=== PATIENT | female | born 2000 | race Caucasian/White ===

== ENCOUNTER 2021-12-06 13:27 | Observation (INO) | payer BC, SELFPAY ==
--- NOTE | ~2021-12-06 | US_ITS ---
EXAMINATION: US PELVIS CLINICAL INFORMATION: Pain. IUD. Verify placement. COMPARISON: None TECHNIQUE: Ultrasound of the pelvis is performed using both transabdominal and transvaginal transducers along with Doppler. Transvaginal imaging is performed due to inadequate visualization transabdominally. FINDINGS: Uterus: The uterus is anteverted, anteflexed and measures 7.1 cm in length, 3.5 cm in AP and 4.6 cm in transverse dimension. The double wall endometrial thickness is 0.3 cm with an IUD in correct position within the endometrial canal. The uterus is smooth in contour and has normal myometrial echogenicity. No visible fibroid. Adnexa: Both ovaries are visualized. There is normal color flow to the adnexa. There is no ovarian torsion. There is no pelvic ascites or fluid collection. Right ovary measures 3.9 x 2.6 x 2.4 CM and volume 12.7 mL. Left ovary measures 4.9 x 3.5 x 4.5 and volume 40.4 mL. There is a complex mass in left ovary measuring 3.9 x 3.3 x 2.5 cm. Findings are suspicious of complex cystic and solid mass or an There is a small to moderate amount of free fluid in the cul-de-sac. US/US pelvic and transvaginal IMPRESSION: Ovarian ectopic. IUD within the uterine cavity in correct position. Endometrium is normal appearing. Complex cystic and solid mass left ovary. There is flow visualized within this complex mass. Question hemorrhagic cyst versus an ectopic. However ectopic would be considered less likely given history of IUD in place. Correlate with HCG if patient is . Results were called by wood technologist to the referring physician directly.
[2021-12-06 13:51] VITALS: BP 106/85; BP 127/83; PULSE 117; PULSE 129; RESP 18; TEMP 37.7; O2SAT 100; O2SAT 99; BMI 32.5
--- NOTE | 2021-12-06 13:54 | ED.ABDPAIN ---
HPI - Abdominal Pain General Chief Complaint: Chest Pain Stated Complaint: CP FROM [facility] PER EMS Time Seen by Provider: 12/06/21 13:38 Source: patient Mode of arrival: EMS History of Present Illness HPI narrative: Patient is a 21-year-old female with a past medical history of SVT with ablation in 2019 was presenting with lower abdominal plain, upper chest pain and vaginal bleeding times 6 hours. Patient states she has an IUD and she thinks her last menstrual period was about a month ago. She states she is sexually active with 1 male partner but has not had intercourse since Ce. She denies any abnormal discharge, fevers, nausea vomiting or diarrhea. She states her chest pain is towards her clavicles and it is on both sides. She also has suprapubic pain and pain when trying to go to the bathroom both a bowel movement and urination, she does admit to chronic constipation. States she was drinking alcohol last night and had 6 pink jing's ( a vodka drink) but was aware of her situation and didn't experience any trauma to her vaginal area. MD elicited complaint: abdominal pain Related Data Allergies Allergy/AdvReac Type Severity Reaction Status Date / Time No Known Allergies Allergy Verified 12/06/21 13:56 Review of Systems Review of Systems Yes all other systems are reviewed and are negative Physical Exam Vital Signs: Vital Signs: Last Vital Signs Temp 99.3 F 12/06/21 14:52 Pulse 91 12/06/21 14:52 Resp 18 12/06/21 14:52 BP 128/61 12/06/21 14:52 Pulse Ox 100 12/06/21 14:52 BMI result Body Mass Index 32.5 Const: General: cooperative, healthy appearing, well developed and in distress (2/2 pain) mild Nutritional Appearance: average body habitus Orientation/consciousness: patient oriented x3 Limitations: no limitations HENMT: Head: Yes normal to inspection Eyes: General: appearance normal, both eyes and all related structures Neck: Neck: Yes normal visual inspection and Yes full ROM Chest: Chest palpation & inspection: normal inspection of the chest, normal palpation of entire chest wall and no localized rib tenderness Resp: Effort & Inspection: normal respiratory effort and able to speak in complete sentences Auscultation: clear to auscultation bilaterally Cardio: Rate: tachycardic Rhythm: regular rhythm Heart sounds: normal S1 and S2 GI: Inspection: Yes normal to inspection Palpation (GI): Soft to palpation and Tenderness to palpation present (GI) suprapubicly : Other: Blood on groin area of pants Vag exam done with tech in room External Female Exam: normal external appearance, normal appearance of the urethra, No erythema, No externally tender, No external swelling, No lesion, No laceration and No External ecchymosis (female) Speculum Exam - Vagina: normal appearance of the vagina, abnormal vaginal discharge bloody, not erythematous, no swelling and other (Unable to visualize IUD string, patient had difficulty tolerating the exam) Skin: General skin exam: no rashes or lesions noted Neuro: General: patient oriented x3 Extrem: General: Yes normal to inspection Course Course Course Narrative: Patient is a 21-year-old female with a past medical history of SVT with ablation in 2019 was presenting with lower abdominal plain, upper chest pain and vaginal bleeding times 6 hours. Vital signs are stable except patient is slightly tachycardic at 117 beats per minute, likely secondary to dehydration. Physical exam remarkable for a suprapubic TTP and blood on groin area of pants. Will get EKG, CBC, comprehensive metabolic panel, UA, test, pelvic ultrasound and give 1 L of LR, will do vaginal exam. Patient unable to urinate, will straight cath. Reevaluation(s) Reevaluation #1: Vaginal exam unremarkable, unable to visualize IUD string as pt unable to tolerate exam, patient still has abdominal pain, ultrasound pending, UA negative for infection. Patient states she is feeling constipated and typically takes Colace and a gentle laxative, will give both now. Patient's vital signs are stable, heart rate is down to [address]/NG. Preg negative. Time: 15:13 Reevaluation #2: sign out to Negar Weiss NP Time: 15:55 MDM - Abdominal Pain Lab Data Result diagrams: 12/06/21 14:24 12/06/21 14:24 Labs: Lab Results 12/06/21 12/06/21 12/06/21 Range/Units 14:24 14:24 14:52 WBC 10.0 (4.8-10.8) X10*3/uL RBC 3.94 L (4.20-5.50) X10*6/uL Hgb 11.4 L (12.0-16.0) g/dl Hct 33.7 L (37.0-47.0) % MCV 85.5 (80.0-98.0) fL MCH 28.9 (27.0-33.0) pg MCHC 33.8 (31.0-35.0) g/dl RDW 12.8 (11.0-16.0) % Plt Count 241 (160-400) X10*3/uL MPV 9.6 (9.4-12.3) fL Absolute Nucleated RBC 0.000 (0.0-0.012) X10*3/uL Nucleated RBC % (auto) 0.0 (0.0-0.2) /100WBC Sodium 140 (135-145) mmol/L Potassium 4.1 (3.3-5.1) mmol/L Chloride 107 (96-108) mmol/L Carbon Dioxide 26 (22-29) mmol/L Anion Gap 11 L (12-20) BUN 9 (9-16) mg/dL Creatinine 0.79 (0.5-1.4) mg/dL Estim Creat Clear Calc 120.6 Estimated GFR > 60 Random Glucose 105 (60-115) mg/dL Calcium 8.9 (8.4-10.2) mg/dL Total Bilirubin 0.5 (0.0-1.0) mg/dL AST 12 (5-31) U/L ALT 8 (0-31) U/L Alkaline Phosphatase 71 (39-117) U/L Total Protein 6.7 (6.5-8.0) g/dL Albumin 4.2 (3.5-5.0) g/dL Urine Color YELLOW Urine Appearance CLEAR Urine pH 7.5 (5.0-8.0) Ur Specific [place] 1.010 (1.005-1.025) Urine Protein NEG (NEG-TRACE) MG/DL Urine Glucose (UA) NEG (NEG) MG/DL Urine Ketones NEG (NEG) MG/DL Urine Blood NEG (NEG) Urine Nitrite NEG (NEG) Ur Leukocyte Esterase NEG (NEG) Urine Test (NEGATIVE) 12/06/21 Range/Units 14:52 WBC (4.8-10.8) X10*3/uL RBC (4.20-5.50) X10*6/uL Hgb (12.0-16.0) g/dl Hct (37.0-47.0) % MCV (80.0-98.0) fL MCH (27.0-33.0) pg MCHC (31.0-35.0) g/dl RDW (11.0-16.0) % Plt Count (160-400) X10*3/uL MPV (9.4-12.3) fL Absolute Nucleated RBC (0.0-0.012) X10*3/uL Nucleated RBC % (auto) (0.0-0.2) /100WBC Sodium (135-145) mmol/L Potassium (3.3-5.1) mmol/L Chloride (96-108) mmol/L Carbon Dioxide (22-29) mmol/L Anion Gap (12-20) BUN (9-16) mg/dL Creatinine (0.5-1.4) mg/dL Estim Creat Clear Calc Estimated GFR Random Glucose (60-115) mg/dL Calcium (8.4-10.2) mg/dL Total Bilirubin (0.0-1.0) mg/dL AST (5-31) U/L ALT (0-31) U/L Alkaline Phosphatase (39-117) U/L Total Protein (6.5-8.0) g/dL Albumin (3.5-5.0) g/dL Urine Color Urine Appearance Urine pH (5.0-8.0) Ur Specific [place] (1.005-1.025) Urine Protein (NEG-TRACE) MG/DL Urine Glucose (UA) (NEG) MG/DL Urine Ketones (NEG) MG/DL Urine Blood (NEG) Urine Nitrite (NEG) Ur Leukocyte Esterase (NEG) Urine Test NEGATIVE (NEGATIVE) ECG Data Attestation: I personally reviewed and interpreted this ECG as follows: Interpretation: Sinus tach 113 BPM, no ST or T-wave elevation/depression, confirmed with Dr Sahni Discharge Plan Discharge Clinical Impression: Abdominal pain, suprapubic, Atypical chest pain Patient Disposition: Home, Self-Care [facility] Past Medical History Medical History (Updated 12/06/21 @ 16:02 by Joan Jones PA-C) SVT (supraventricular tachycardia) Surgical History (Updated 12/06/21 @ 15:50 by Farrah Palomares) H/O cardiac radiofrequency ablation History of hip surgery Social History Social History Advance Directives: No Advance Directives Information Provided: No
--- NOTE | 2021-12-06 14:06 | ECG_ITS ---
Test Reason : cp Blood Pressure : / mmHG Vent. Rate : 113 BPM Atrial Rate : 113 BPM P-R Int : 124 ms QRS Dur : 098 ms QT Int : 344 ms P-R-T Axes : 042 088 018 degrees QTc Int : 471 ms Sinus tachycardia T wave abnormality, consider anterior ischemia Abnormal ECG No previous ECGs available Referred By: Joan Jones Electronically Signed By:BOBBY IBARRA MD
[2021-12-06] MEDS: Lactated Ringers 1,000 ML 999 ML IV (14:25)
[2021-12-06 14:28] LABS: Hematocrit 33.7 % (37.0-47.0); Hemoglobin 11.4 g/dl (12.0-16.0); Mean Corpuscular HGB Conc 33.8 g/dl (31.0-35.0); Mean Corpuscular Hemoglobin 28.9 pg (27.0-33.0); Mean Corpuscular Volume 85.5 fL (80.0-98.0); Mean Platelet Volume 9.6 fL (9.4-12.3); Platelet Count 241 X10*3/uL (160-400); Red Blood Count 3.94 X10*6/uL (4.20-5.50); Red Cell Distribution Width 12.8 % (11.0-16.0)
[2021-12-06 14:51] LABS: Alanine Aminotransferase 8 U/L (0-31); Albumin Level 4.2 g/dL (3.5-5.0); Alkaline Phosphatase 71 U/L (39-117); Anion Gap 11 (12-20); Aspartate Amino Transferase 12 U/L (5-31); Bilirubin Total 0.5 mg/dL (0.0-1.0); Blood Urea Nitrogen 9 mg/dL (9-16); Calcium 8.9 mg/dL (8.4-10.2); Carbon Dioxide 26 mmol/L (22-29); Chloride 107 mmol/L (96-108); Creatinine Clr Calc Pharmacy 120.6; Estimated Glomerular Filt Rate > 60; Glucose Random 105 mg/dL (60-115); Potassium 4.1 mmol/L (3.3-5.1); Sodium 140 mmol/L (135-145); Total Protein 6.7 g/dL (6.5-8.0)
[2021-12-06 14:52] VITALS: BP 128/61; PULSE 91; RESP 18; TEMP 37.4; O2SAT 100
[2021-12-06 15:06] LABS: Appearance Urine CLEAR; Color Urine YELLOW; Glucose Urine UA NEG (NEG); Leukocyte Esterase Urine NEG (NEG); Nitrite Urine NEG (NEG); PH 7.5 (5.0-8.0); Urine Blood NEG (NEG); Urine Ketones NEG (NEG); Urine Protein NEG (NEG-TRACE)
[2021-12-06 15:23] LABS: UPreg QC Valid YES; Urine Pregnancy NEGATIVE (NEGATIVE)
[2021-12-06] MEDS: Docusate Sodium 100 MG CAPSULE PO (15:34)
[2021-12-06] MEDS: Milk of Magnesia 30 ML ORAL.SUSP 15 ML PO (15:34)
--- NOTE | 2021-12-06 16:40 | ED.CHESTPAIN ---
HPI - Chest Pain General Chief Complaint: Chest Pain Stated Complaint: CP FROM [facility] PER EMS Time Seen by Provider: 12/06/21 13:38 Source: patient Mode of arrival: EMS Related Data Home Medications Medication Instructions Recorded Confirmed bupropion HCl 300 mg 24 hr tablet, 1 tab PO DAILY 12/06/21 12/06/21 extended release buspirone 10 mg tablet 3 tab PO BID 12/06/21 12/06/21 cetirizine 10 mg tablet (Zyrtec) 10 mg PO BID 12/06/21 12/06/21 docusate sodium 50 mg capsule 50 mg PO BID 12/06/21 12/06/21 escitalopram oxalate 10 mg tablet 1 tab PO DAILY 12/06/21 12/06/21 escitalopram oxalate 20 mg tablet 1 tab PO DAILY 12/06/21 12/06/21 famotidine 20 mg tablet (Pepcid) 20 mg PO BID 12/06/21 12/06/21 fexofenadine 60 mg tablet 60 mg PO DAILY 12/06/21 12/06/21 glycopyrrolate 1 mg tablet 2 mg PO BID 12/06/21 12/06/21 methenamine hippurate 1 gram tablet 1 g PO BID 12/06/21 12/06/21 multivitamin 1 tab PO DAILY 12/06/21 12/06/21 omeprazole magnesium 20 mg 20 mg PO DAILY 12/06/21 12/06/21 tablet,delayed release (Prilosec OTC) sennosides 25 mg tablet 25 mg PO DAILY 12/06/21 12/06/21 Allergies Allergy/AdvReac Type Severity Reaction Status Date / Time No Known Allergies Allergy Verified 12/06/21 13:56 [facility] Past Medical History Medical History SVT (supraventricular tachycardia) Surgical History H/O cardiac radiofrequency ablation History of hip surgery Social History Social History Smoked in Last 30 Days: No Use of substances other than those prescribed or required for medical reasons: No Advance Directives: No Advance Directives Information Provided: No Physical Exam Vital Signs: Vital Signs: Last Vital Signs Temp 98.3 F 12/06/21 18:36 Pulse 88 12/06/21 18:36 Resp 16 12/06/21 18:36 BP 118/61 12/06/21 18:36 Pulse Ox 99 12/06/21 18:36 BMI result Body Mass Index 32.5 Course Course Course Narrative: Please refer to prior providers note for full H&P, physical assessment and prior plan of care. 16:[address] Brunilda Fields regarding ultrasounds preliminary findings. Dr. Alvarez does not feel that this could be a ectopic because test is negative, more likely to be ruptured ovarian cyst. Order for fluids, pain management, and type and screen. 17:20 Dr. Worley at bedside. 18:13 patient will be admitted to Dr. Worley for ruptured ovarian cyst. MDM - Chest Pain Lab Data Result diagrams: 12/06/21 17:44 12/06/21 14:24 Labs: Lab Results 12/06/21 12/06/21 12/06/21 Range/Units 14:24 14:24 14:52 WBC 10.0 (4.8-10.8) X10*3/uL RBC 3.94 L (4.20-5.50) X10*6/uL Hgb 11.4 L (12.0-16.0) g/dl Hct 33.7 L (37.0-47.0) % MCV 85.5 (80.0-98.0) fL MCH 28.9 (27.0-33.0) pg MCHC 33.8 (31.0-35.0) g/dl RDW 12.8 (11.0-16.0) % Plt Count 241 (160-400) X10*3/uL MPV 9.6 (9.4-12.3) fL Immature Gran % (Auto) (0.0-0.4) % Neut % (Auto) (45-73) % Lymph % (Auto) (20-40) % [place] % (Auto) (2-11) % Eos % (Auto) (0-4) % Baso % (Auto) (0-2) % Lymph # (Auto) (1.2-4.9) X10*3/uL [place] # (Auto) (0.1-1.2) X10*3/uL Eos # (Auto) (0.0-0.4) X10*3/uL Baso # (Auto) (0.0-0.2) X10*3/uL Abs Immat Gran (auto) (0.00-0.03) X10*3/uL Absolute Neuts (auto) (2.0-8.3) x10*3/uL Absolute Nucleated RBC 0.000 (0.0-0.012) X10*3/uL Nucleated RBC % (auto) 0.0 (0.0-0.2) /100WBC PT (9.9-13.0) SEC INR (0.9-1.1) APTT (24.1-38.0) SEC Sodium 140 (135-145) mmol/L Potassium 4.1 (3.3-5.1) mmol/L Chloride 107 (96-108) mmol/L Carbon Dioxide 26 (22-29) mmol/L Anion Gap 11 L (12-20) BUN 9 (9-16) mg/dL Creatinine 0.79 (0.5-1.4) mg/dL Estim Creat Clear Calc 120.6 Estimated GFR > 60 Random Glucose 105 (60-115) mg/dL Calcium 8.9 (8.4-10.2) mg/dL Total Bilirubin 0.5 (0.0-1.0) mg/dL AST 12 (5-31) U/L ALT 8 (0-31) U/L Alkaline Phosphatase 71 (39-117) U/L Total Protein 6.7 (6.5-8.0) g/dL Albumin 4.2 (3.5-5.0) g/dL Urine Color YELLOW Urine Appearance CLEAR Urine pH 7.5 (5.0-8.0) Ur Specific [place] 1.010 (1.005-1.025) Urine Protein NEG (NEG-TRACE) MG/DL Urine Glucose (UA) NEG (NEG) MG/DL Urine Ketones NEG (NEG) MG/DL Urine Blood NEG (NEG) Urine Nitrite NEG (NEG) Ur Leukocyte Esterase NEG (NEG) Urine Test (NEGATIVE) Blood Type Antibody Screen 12/06/21 12/06/21 12/06/21 Range/Units 14:52 16:41 16:41 WBC (4.8-10.8) X10*3/uL RBC (4.20-5.50) X10*6/uL Hgb (12.0-16.0) g/dl Hct (37.0-47.0) % MCV (80.0-98.0) fL MCH (27.0-33.0) pg MCHC (31.0-35.0) g/dl RDW (11.0-16.0) % Plt Count (160-400) X10*3/uL MPV (9.4-12.3) fL Immature Gran % (Auto) (0.0-0.4) % Neut % (Auto) (45-73) % Lymph % (Auto) (20-40) % [place] % (Auto) (2-11) % Eos % (Auto) (0-4) % Baso % (Auto) (0-2) % Lymph # (Auto) (1.2-4.9) X10*3/uL [place] # (Auto) (0.1-1.2) X10*3/uL Eos # (Auto) (0.0-0.4) X10*3/uL Baso # (Auto) (0.0-0.2) X10*3/uL Abs Immat Gran (auto) (0.00-0.03) X10*3/uL Absolute Neuts (auto) (2.0-8.3) x10*3/uL Absolute Nucleated RBC (0.0-0.012) X10*3/uL Nucleated RBC % (auto) (0.0-0.2) /100WBC PT 12.3 (9.9-13.0) SEC INR 1.1 (0.9-1.1) APTT 33.4 (24.1-38.0) SEC Sodium (135-145) mmol/L Potassium (3.3-5.1) mmol/L Chloride (96-108) mmol/L Carbon Dioxide (22-29) mmol/L Anion Gap (12-20) BUN (9-16) mg/dL Creatinine (0.5-1.4) mg/dL Estim Creat Clear Calc Estimated GFR Random Glucose (60-115) mg/dL Calcium (8.4-10.2) mg/dL Total Bilirubin (0.0-1.0) mg/dL AST (5-31) U/L ALT (0-31) U/L Alkaline Phosphatase (39-117) U/L Total Protein (6.5-8.0) g/dL Albumin (3.5-5.0) g/dL Urine Color Urine Appearance Urine pH (5.0-8.0) Ur Specific [place] (1.005-1.025) Urine Protein (NEG-TRACE) MG/DL Urine Glucose (UA) (NEG) MG/DL Urine Ketones (NEG) MG/DL Urine Blood (NEG) Urine Nitrite (NEG) Ur Leukocyte Esterase (NEG) Urine Test NEGATIVE (NEGATIVE) Blood Type O Positive Antibody Screen NEGATIVE 12/06/21 Range/Units 17:44 WBC 9.0 (4.8-10.8) X10*3/uL RBC 3.41 L (4.20-5.50) X10*6/uL Hgb 10.0 L (12.0-16.0) g/dl Hct 29.3 L (37.0-47.0) % MCV 85.9 (80.0-98.0) fL MCH 29.3 (27.0-33.0) pg MCHC 34.1 (31.0-35.0) g/dl RDW 13.0 (11.0-16.0) % Plt Count 215 (160-400) X10*3/uL MPV 9.7 (9.4-12.3) fL Immature Gran % (Auto) 0.2 (0.0-0.4) % Neut % (Auto) 75.3 H (45-73) % Lymph % (Auto) 14.4 L (20-40) % [place] % (Auto) 9.1 (2-11) % Eos % (Auto) 0.6 (0-4) % Baso % (Auto) 0.4 (0-2) % Lymph # (Auto) 1.3 (1.2-4.9) X10*3/uL [place] # (Auto) 0.8 (0.1-1.2) X10*3/uL Eos # (Auto) 0.1 (0.0-0.4) X10*3/uL Baso # (Auto) 0.0 (0.0-0.2) X10*3/uL Abs Immat Gran (auto) 0.02 (0.00-0.03) X10*3/uL Absolute Neuts (auto) 6.8 (2.0-8.3) x10*3/uL Absolute Nucleated RBC 0.000 (0.0-0.012) X10*3/uL Nucleated RBC % (auto) 0.0 (0.0-0.2) /100WBC PT (9.9-13.0) SEC INR (0.9-1.1) APTT (24.1-38.0) SEC Sodium (135-145) mmol/L Potassium (3.3-5.1) mmol/L Chloride (96-108) mmol/L Carbon Dioxide (22-29) mmol/L Anion Gap (12-20) BUN (9-16) mg/dL Creatinine (0.5-1.4) mg/dL Estim Creat Clear Calc Estimated GFR Random Glucose (60-115) mg/dL Calcium (8.4-10.2) mg/dL Total Bilirubin (0.0-1.0) mg/dL AST (5-31) U/L ALT (0-31) U/L Alkaline Phosphatase (39-117) U/L Total Protein (6.5-8.0) g/dL Albumin (3.5-5.0) g/dL Urine Color Urine Appearance Urine pH (5.0-8.0) Ur Specific [place] (1.005-1.025) Urine Protein (NEG-TRACE) MG/DL Urine Glucose (UA) (NEG) MG/DL Urine Ketones (NEG) MG/DL Urine Blood (NEG) Urine Nitrite (NEG) Ur Leukocyte Esterase (NEG) Urine Test (NEGATIVE) Blood Type Antibody Screen Imaging Data Pelvic ultrasound: Attestation: I personally reviewed and interpreted this imaging study as follows: Radiologist's impression: EXAMINATION:? US PELVIS CLINICAL INFORMATION:? Pain. IUD. Verify placement. COMPARISON: None TECHNIQUE: Ultrasound of the pelvis is performed using both transabdominal and transvaginal transducers along with Doppler. Transvaginal imaging is performed due to inadequate visualization transabdominally. FINDINGS: Uterus: The uterus is anteverted, anteflexed and measures 7.1 cm in length, 3.5 cm in AP and 4.6 cm in transverse dimension. The double wall endometrial thickness is 0.3 cm with an IUD in correct position within the endometrial canal. The uterus is smooth in contour and has normal myometrial echogenicity. ? No visible fibroid. Adnexa: Both ovaries are visualized. There is normal color flow to the adnexa. There is no ovarian torsion.? There is no pelvic ascites or fluid collection. Right ovary measures 3.9 x 2.6 x 2.4 CM and volume 12.7 mL. Left ovary measures 4.9 x 3.5 x 4.5 and volume 40.4 mL. There is a complex mass in left ovary measuring 3.9 x 3.3 x 2.5 cm. Findings are suspicious of complex cystic and solid mass or an There is a small to moderate amount of free fluid in the cul-de-sac. US/US pelvic and transvaginal IMPRESSION: Ovarian ectopic. IUD within the uterine cavity in correct position. Endometrium is normal appearing. ? Complex cystic and solid mass left ovary. There is flow visualized within this complex mass. Question? hemorrhagic cyst versus an ectopic. However ectopic would be considered less likely given history of IUD in place. Correlate with HCG if patient is . ? Results were called by polysomnographic technologist to the referring physician directly. Discharge Plan Discharge Clinical Impression: Abdominal pain, suprapubic, Atypical chest pain, Ruptured ovarian cyst Patient Disposition: Admitted As Inpatient
[2021-12-06] MEDS: ondansetron HCL 4 MG/2 ML VIAL IVPUSH (16:51)
[2021-12-06] MEDS: Morphine Sulfate 4 MG/ML CARTRIDGE IVPUSH (16:51)
[2021-12-06] MEDS: 0.9 % Sodium Chloride 1,000 ML 999 ML IVCONT (16:51)
[2021-12-06 16:58] LABS: INTERNATIONAL NORM RATIO 1.1 (0.9-1.1); Prothrombin Time 12.3 SEC (9.9-13.0)
[2021-12-06 17:01] LABS: Partial Thromboplastin Time 33.4 SEC (24.1-38.0)
[2021-12-06 17:35] VITALS: BP 125/70; PULSE 91; RESP 16; TEMP 37.5; O2SAT 97
--- NOTE | 2021-12-06 17:42 | P.CONOB_ITS ---
SEARCH SPECIALIST - CN: HPI Data of Consult Consult date: 12/06/21 Primary Care Provider: Nonstaff Physician Consult Narrative Narrative: I was consulted on Seema Campa who is a 21 year old female who woke up this morning around noon with sudden excruciating pelvic pain, associated with referred left shoulder pain and vaginal bleeding no other symptoms patient has a Mirena IUD inserted March of 2018. Vaginal bleeding has slowed down since then, vaginal discharge or any other complaints cc:: CC: CDC ASSOCIATE - Review of Systems Review of Systems ROS Unobtainable: All systems reviewed & are unremarkable except as noted in HPI and below Cardiovascular: Denies Palpatations, Loss of consciousness or Chest pain Respiratory: Denies Cough, Wheezing or Shortness of breath Musculoskeletal: Denies Low back pain Gastrointestinal: Denies Heartburn, Constipation, Diarrhea, Nausea or Vomiting Genitourinary: Denies Pain with urination, Burning with urination or Urinary frequency Neurological: Denies Migranes Psychological: Denies Depression OB PMFSH Past Medical History Medical History SVT (supraventricular tachycardia) Surgical History Surgical History H/O cardiac radiofrequency ablation History of hip surgery Social History Social History Alcohol intake: never Patient Tobacco Use Status: Never used Tobacco Smoked in Last 30 Days: No Use of substances other than those prescribed or required for medical reasons: No Advance Directives: No Advance Directives Information Provided: No Meds Allergies Allergy/AdvReac Type Severity Reaction Status Date / Time No Known Allergies Allergy Verified 12/06/21 13:56 Active Medications: Current Medications Sodium Chloride (Ns) 1,000 mls @ 999 mls/hr IVCONT .[id number] GUILLERMO Stop: 12/06/21 17:45 Last Admin: 12/06/21 16:51 Dose: 999 mls/hr Documented by: Home Medications Medication Instructions Recorded Confirmed Last Taken Type bupropion HCl 300 mg 24 hr tablet, 1 tab PO DAILY 12/06/21 12/06/21 12/05/21 History extended release buspirone 10 mg tablet 3 tab PO BID 12/06/21 12/06/21 12/05/21 History cetirizine 10 mg tablet (Zyrtec) 10 mg PO BID 12/06/21 12/06/21 12/05/21 History docusate sodium 50 mg capsule 50 mg PO BID 12/06/21 12/06/21 12/05/21 History escitalopram oxalate 10 mg tablet 1 tab PO DAILY 12/06/21 12/06/21 12/05/21 History escitalopram oxalate 20 mg tablet 1 tab PO DAILY 12/06/21 12/06/21 12/05/21 History famotidine 20 mg tablet (Pepcid) 20 mg PO BID 12/06/21 12/06/21 12/05/21 History fexofenadine 60 mg tablet 60 mg PO DAILY 12/06/21 12/06/21 12/05/21 History glycopyrrolate 1 mg tablet 2 mg PO BID 12/06/21 12/06/21 12/05/21 History methenamine hippurate 1 gram tablet 1 g PO BID 12/06/21 12/06/21 12/05/21 History multivitamin 1 tab PO DAILY 12/06/21 12/06/21 12/05/21 History omeprazole magnesium 20 mg 20 mg PO DAILY 12/06/21 12/06/21 12/05/21 History tablet,delayed release (Prilosec OTC) sennosides 25 mg tablet 25 mg PO DAILY 12/06/21 12/06/21 12/05/21 History SEARCH SPECIALIST Physical Exam Vitals Vital signs: Temp Pulse Resp BP Pulse Ox 99.5 F 91 16 125/70 97 12/06/21 17:35 12/06/21 17:35 12/06/21 17:35 12/06/21 17:35 12/06/21 17:35 BMI result Body Mass Index 32.5 Constitutional General Appearance: Healthy appearing, Well-nourished and Well-developed Psychiatric Mood and Affect: active and alert, normal mood and normal affect Skin Appearance: No rashes and No lesions Lungs Respiratory Effort: No intercostal retractions Auscultation: Clear to auscultation Cardiovascular Auscultation: RRR Abdomen Auscultation/Inspection/Palpation: Normal bowel sounds, Soft, Non-distended and Tenderness (Bilateral lower quadrant, no guarding or rebound) Female Genitalia (Pelvic) Vulva: No lesions Vagina: Nontender, No erythema and No lesions Cervix: Grossly normal Uterus: Tender Adnexa/Parametria: Adnexal Tenderness: Bilateral SEARCH SPECIALIST - Results Labs CBC & Chem 7: 12/07/21 06:46 12/06/21 14:24 Labs: Short CBC 12/06/21 Range/Units 14:24 WBC 10.0 (4.8-10.8) X10*3/uL Hgb 11.4 L (12.0-16.0) g/dl Hct 33.7 L (37.0-47.0) % Plt Count 241 (160-400) X10*3/uL BMP 12/06/21 14:24 Sodium 140 Potassium 4.1 Chloride 107 Carbon Dioxide 26 BUN 9 Creatinine 0.79 Calcium 8.9 Liver Function 12/06/21 Range/Units 14:24 Total Bilirubin 0.5 (0.0-1.0) mg/dL AST 12 (5-31) U/L ALT 8 (0-31) U/L Alkaline Phosphatase 71 (39-117) U/L Albumin 4.2 (3.5-5.0) g/dL Urine 12/06/21 12/06/21 Range/Units 14:52 14:52 Urine Color YELLOW Urine Appearance CLEAR Urine pH 7.5 (5.0-8.0) Ur Specific [place] 1.010 (1.005-1.025) Urine Protein NEG (NEG-TRACE) MG/DL Urine Glucose (UA) NEG (NEG) MG/DL Urine Test NEGATIVE (NEGATIVE) Antibody Screen Antibody Screen NEGATIVE 12/06/21 16:41 Imaging US - abdomen: Radiologist's impression: ITS Impressions Pelvic/Transvag US 12/06/21 16:15 IMPRESSION: Ovarian ectopic. IUD within the uterine cavity in correct position. Endometrium is normal appearing. Complex cystic and solid mass left ovary. There is flow visualized within this complex mass. Question hemorrhagic cyst versus an ectopic. However ectopic would be considered less likely given history of IUD in place. Correlate with HCG if patient is . Results were called by generation engineering technologist to the referring physician directly. Assessment and Plan (1) Ruptured ovarian cyst: Status: Acute Urine test was negative, H&H at 14:23 11.4/33.7, ultrasound showed [id number] amount of free fluid in the pelvis with right complex ovarian cyst 3.9 cm Discussed with the patient her diagnosis, ruptured ovarian cyst mild to moderate fluid in the pelvis, and patient is distressed with the patient that her vitals have been stable, repeat H&H came back at 08/21.3 , recommended to the patient to admit for observation overnight with pain management and repeat a.m. H&H. Will keep NPO, oxycodone 5 mg p.o. Q 3 hours p.r.n. moderate pain and 10 mg p.o. Q 3 hours severe pain, Toradol 30 mg IV Q 6 p.r.n. moderate pain, will repeat H&H in the morning. In the event the patient shows any signs and symptoms of active intra-abdominal bleeding, hypotension, tachycardia, significant drop in the H&H will consider surgical intervention. All questions answered, the patient verbalized understanding
[2021-12-06 17:48] LABS: MANUAL DIFF FLAG NO
--- NOTE | 2021-12-06 17:48 | PC.NURSE ---
This Pct asssited Brunilda Burnett with a pelvic exam,pt tolerated procedure well. specimens obtained and sent to lab.pt is resting comfortable at this time call ramos in reach.
[2021-12-06 17:58] LABS: Basophils Percent Auto 0.4 % (0-2); Eosinophils Absolute Auto 0.1 X10*3/uL (0.0-0.4); Eosinophils Percent Auto 0.6 % (0-4); Hematocrit 29.3 % (37.0-47.0); Imm Gran Abs Auto 0.02 X10*3/uL (0.00-0.03); Imm Gran Pct Auto 0.2 % (0.0-0.4); Lymphocytes Absolute Auto 1.3 X10*3/uL (1.2-4.9); Lymphocytes Percent Auto 14.4 % (20-40); Mean Corpuscular HGB Conc 34.1 g/dl (31.0-35.0); Mean Corpuscular Hemoglobin 29.3 pg (27.0-33.0); Mean Corpuscular Volume 85.9 fL (80.0-98.0); Mean Platelet Volume 9.7 fL (9.4-12.3); Monocytes Absolute Auto 0.8 X10*3/uL (0.1-1.2); Monocytes Percent Auto 9.1 % (2-11); Neutrophils Absolute Auto 6.8 x10*3/uL (2.0-8.3); Neutrophils Percent Auto 75.3 % (45-73); Platelet Count 215 X10*3/uL (160-400); Red Blood Count 3.41 X10*6/uL (4.20-5.50)
[2021-12-06] MEDS: Lactated Ringers 1,000 ML 125 ML IVCONT (18:24)
--- NOTE | 2021-12-06 18:27 | PC.NURSE ---
patient bladder scan read 224 ml, unable to print battery on machine. dr ireland at bedside and told patient to try to void in about hour and if cant not will need cath. patient verbally unsterdstands.
[2021-12-06] MEDS: oxyCODONE HCl Immed Release 5 MG TABLET PO (18:33)
[2021-12-06 18:36] VITALS: BP 118/61; PULSE 88; RESP 16; TEMP 36.8; O2SAT 99
--- NOTE | 2021-12-06 18:44 | PHA.MEDREC ---
Pharmacy Consult ? Medication Reconciliation Pharmacy has completed the medication reconciliation. No remarkable issues. Parisa Briseno, JakeD
[2021-12-06 20:02] LABS: COVID-19 Test Negative (Negative); IDNOW Serial# 9DD0AD1C
[2021-12-06 22:54] VITALS: BP 98/49; PULSE 72; RESP 16; TEMP -13.1; TEMP 8.4; O2SAT 99
[2021-12-06] MEDS: oxyCODONE HCl Immed Release 5 MG TABLET 10 MG PO (23:48)
[2021-12-06] MEDS: Ketorolac Tromethamine 30 MG/ML VIAL IVPUSH (23:49)
[2021-12-07 00:44] VITALS: BP 109/61; PULSE 76; RESP 14; TEMP 36.9; O2SAT 98
--- NOTE | 2021-12-07 02:05 | PC.NURSE ---
I assumed care of this pt at 1900. Since that time Seema has been alert and oriented x 3, resting in bed awaiting inpatient bed assignment. She is TBADM and verbalizes an understanding of this. Seema states she came to the ED for evaluation of abdominal pain and vaginal bleeding and is aware that she is being admitted due to possible ruptured ovarian cyst. There is no chest pain, no shortness of breath, respirations are non-labored, she is speaking in full sentences. She had c/o 7/10 lower abdominal pain, stated they gave me Morphine and Oxy for it but that wore off. I administered IVP Toradol and PO Oxycontin (see eMar for doses and times) and the pt has been able to fall asleep. She is awaiting bed assignment and arrival of her mother.
[2021-12-07] MEDS: Lactated Ringers 1,000 ML 125 ML IVCONT (03:26)
[2021-12-07 05:07] VITALS: RESP 14; TEMP 37.1; O2SAT 100
[2021-12-07] MEDS: oxyCODONE HCl Immed Release 5 MG TABLET 10 MG PO (05:27)
[2021-12-07 05:30] LABS: CT PCR NOT DETECTED (Not Detect.); NG PCR NOT DETECTED (Not Detect.)
[2021-12-07] MEDS: diphenhydrAMINE HCL 25 MG TABLET PO (06:00)
[2021-12-07 07:00] LABS: Hemoglobin 9.6 g/dl (12.0-16.0); Mean Corpuscular HGB Conc 33.1 g/dl (31.0-35.0); Mean Corpuscular Hemoglobin 28.7 pg (27.0-33.0); Mean Corpuscular Volume 86.8 fL (80.0-98.0); Mean Platelet Volume 9.6 fL (9.4-12.3); Platelet Count 175 X10*3/uL (160-400); Red Blood Count 3.34 X10*6/uL (4.20-5.50); Red Cell Distribution Width 12.8 % (11.0-16.0); White Blood Count 6.9 X10*3/uL (4.8-10.8)
--- NOTE | 2021-12-07 08:18 | P.PNOB_ITS ---
ACID CONDITIONER - Subjective Subjective Date of Service: 12/07/21 Interval history: Doing well, no complaints a minimal abdominal pain, still NPO, voiding freely Subjective Findings: Ambulating well: Reports, Ambulating w/ difficulty: Denies, Back pain: Denies, Bleeding normal: Reports, Constipation: Denies, Headache: Denies, Nausea: Denies, Pain well-controlled: Reports and Voiding difficulty: Denies INTERIOR DESIGN ASSISTANT Physical Exam Vitals Vital signs: Temp Pulse Resp BP Pulse Ox 98.7 F 76 14 109/61 100 12/07/21 05:07 12/07/21 00:44 12/07/21 05:07 12/07/21 00:44 12/07/21 05:07 BMI result Body Mass Index 32.5 Abdomen Auscultation/Inspection/Palpation: Soft, Non-distended and No tenderness ACID CONDITIONER - Prog Note: Results Labs CBC & Chem 7: 12/07/21 06:46 12/06/21 14:24 Labs: Laboratory Results - last 24 hr 12/06/21 12/06/21 12/06/21 14:24 14:24 14:52 WBC 10.0 RBC 3.94 L Hgb 11.4 L Hct 33.7 L MCV 85.5 MCH 28.9 MCHC 33.8 RDW 12.8 Plt Count 241 MPV 9.6 Immature Gran % (Auto) Neut % (Auto) Lymph % (Auto) Bowman % (Auto) Eos % (Auto) Baso % (Auto) Lymph # (Auto) Bowman # (Auto) Eos # (Auto) Baso # (Auto) Abs Immat Gran (auto) Absolute Neuts (auto) Absolute Nucleated RBC 0.000 Nucleated RBC % (auto) 0.0 PT INR APTT Sodium 140 Potassium 4.1 Chloride 107 Carbon Dioxide 26 Anion Gap 11 L BUN 9 Creatinine 0.79 Estim Creat Clear Calc 120.6 Estimated GFR > 60 Random Glucose 105 Calcium 8.9 Total Bilirubin 0.5 AST 12 ALT 8 Alkaline Phosphatase 71 Total Protein 6.7 Albumin 4.2 Urine Color YELLOW Urine Appearance CLEAR Urine pH 7.5 Ur Specific [place] 1.010 Urine Protein NEG Urine Glucose (UA) NEG Urine Ketones NEG Urine Blood NEG Urine Nitrite NEG Ur Leukocyte Esterase NEG Urine Test Chlam trachomat DNA PCR COVID-19 (GERA) COVID-19 Clin Com N.gonorrhoeae DNA (PCR) Blood Type Antibody Screen 12/06/21 12/06/21 12/06/21 14:52 16:41 16:41 WBC RBC Hgb Hct MCV MCH MCHC RDW Plt Count MPV Immature Gran % (Auto) Neut % (Auto) Lymph % (Auto) Bowman % (Auto) Eos % (Auto) Baso % (Auto) Lymph # (Auto) Bowman # (Auto) Eos # (Auto) Baso # (Auto) Abs Immat Gran (auto) Absolute Neuts (auto) Absolute Nucleated RBC Nucleated RBC % (auto) PT 12.3 INR 1.1 APTT 33.4 Sodium Potassium Chloride Carbon Dioxide Anion Gap BUN Creatinine Estim Creat Clear Calc Estimated GFR Random Glucose Calcium Total Bilirubin AST ALT Alkaline Phosphatase Total Protein Albumin Urine Color Urine Appearance Urine pH Ur Specific [place] Urine Protein Urine Glucose (UA) Urine Ketones Urine Blood Urine Nitrite Ur Leukocyte Esterase Urine Test NEGATIVE Chlam trachomat DNA PCR COVID-19 (GERA) COVID-19 Clin Com N.gonorrhoeae DNA (PCR) Blood Type O Positive Antibody Screen NEGATIVE 12/06/21 12/06/21 12/06/21 17:38 17:44 19:40 WBC 9.0 RBC 3.41 L Hgb 10.0 L Hct 29.3 L MCV 85.9 MCH 29.3 MCHC 34.1 RDW 13.0 Plt Count 215 MPV 9.7 Immature Gran % (Auto) 0.2 Neut % (Auto) 75.3 H Lymph % (Auto) 14.4 L Bowman % (Auto) 9.1 Eos % (Auto) 0.6 Baso % (Auto) 0.4 Lymph # (Auto) 1.3 Bowman # (Auto) 0.8 Eos # (Auto) 0.1 Baso # (Auto) 0.0 Abs Immat Gran (auto) 0.02 Absolute Neuts (auto) 6.8 Absolute Nucleated RBC 0.000 Nucleated RBC % (auto) 0.0 PT INR APTT Sodium Potassium Chloride Carbon Dioxide Anion Gap BUN Creatinine Estim Creat Clear Calc Estimated GFR Random Glucose Calcium Total Bilirubin AST ALT Alkaline Phosphatase Total Protein Albumin Urine Color Urine Appearance Urine pH Ur Specific [place] Urine Protein Urine Glucose (UA) Urine Ketones Urine Blood Urine Nitrite Ur Leukocyte Esterase Urine Test Chlam trachomat DNA PCR NOT DETECTED COVID-19 (GERA) Negative COVID-19 Clin Com See Note N.gonorrhoeae DNA (PCR) NOT DETECTED Blood Type Antibody Screen 12/07/21 06:46 WBC 6.9 RBC 3.34 L Hgb 9.6 L Hct 29.0 L MCV 86.8 MCH 28.7 MCHC 33.1 RDW 12.8 Plt Count 175 MPV 9.6 Immature Gran % (Auto) Neut % (Auto) Lymph % (Auto) Bowman % (Auto) Eos % (Auto) Baso % (Auto) Lymph # (Auto) Bowman # (Auto) Eos # (Auto) Baso # (Auto) Abs Immat Gran (auto) Absolute Neuts (auto) Absolute Nucleated RBC 0.000 Nucleated RBC % (auto) 0.0 PT INR APTT Sodium Potassium Chloride Carbon Dioxide Anion Gap BUN Creatinine Estim Creat Clear Calc Estimated GFR Random Glucose Calcium Total Bilirubin AST ALT Alkaline Phosphatase Total Protein Albumin Urine Color Urine Appearance Urine pH Ur Specific [place] Urine Protein Urine Glucose (UA) Urine Ketones Urine Blood Urine Nitrite Ur Leukocyte Esterase Urine Test Chlam trachomat DNA PCR COVID-19 (GERA) COVID-19 Clin Com N.gonorrhoeae DNA (PCR) Blood Type Antibody Screen ACID CONDITIONER - A/P (1) Ruptured ovarian cyst: Status: Acute Plan Will advance diet to regular and discharge patient home if tolerated. Discharge instructions given to patient to call in case of persistence or worsening of her pain, temperature above 100.4, nausea or vomiting or heavy vaginal bleeding. Follow-up in the office in 2 weeks. Will Repeat ultrasound to follow-up on the ovarian cyst in few weeks. Ibuprofen 600 mg p.o. Q 6-8 p.r.n. pain, Tylenol 650 mg p.o. Q 8 p.r.n. pain, oxycodone 5 mg p.o. Q 4 p.r.n. pain # 15 with 0 refill Assessment/Plan Status: Doing well Plan: Discharge Time Spent With Patient Time: Total time spent is greater than 50% in coordination of care (as documented) at patient's floor/unit and/or counseling patient: Time with patient: 15 - 24 minutes
--- NOTE | 2021-12-07 08:21 | PC.NURSE ---
md [place] at bedside plan for dc home with office f/u
--- NOTE | 2021-12-07 09:41 | MHC.CM.PN ---
Addendum entered by Radha Cerna 12/07/21 10:19: PER PTS MOTHER, PT IS VACCINATED AGAINST COVID-19 AND HAS HAD THE BOOSTER Original Note: CM MET WITH PTS MOTHER WHO WAS AT BEDSIDE, PT SLEEPING. SHE REPORTS THE PT LIVES ON CAMPUS AT [facility] WHERE SHE IS A FT STUDENT SHE REPORTS THE PT IS FULLY INDEPENDENT, HAS NO DME AND NO SERVICES PTS PCP IS DICK CARMEN IN [place], [place]. PT HAS NO HCP. OBSERVATION NOTICE DELIVERED, ONE COPY LEFT BEDSIDE, THE OTHER SENT TO MED[facility] RECORDS PT IS CLEARED TO DC TODAY WITH OUTPATIENT FOLLOW UP MOTHER WILL TRANSPORT
[2021-12-07 11:13] LABS: BV Int Neg Control Negative (Negative); BV Int Pos Control Positive (Positive)
--- NOTE | 2022-06-14 13:54 | PM.EVENT ---
Event Note Date of Service: 12/07/21 Event Note: Seema Campa who is a 21 year old female who woke up the morning with sudden excruciating pelvic pain, associated with referred left shoulder pain and?vaginal bleeding, no other symptoms.? The patient has a Mirena IUD inserted March of 2018.? Vaginal bleeding slowed down within few hours of present a garcia, no vaginal discharge or any other complaints In the emergency room Urine test was negative, H&H at 14:23 11.4/33.7, ultrasound showed [id number] amount of free fluid in the pelvis with right complex ovarian cyst 3.9 cm.?Discussed with the patient her diagnosis, ruptured ovarian cyst mild to moderate fluid in the pelvis, and patient is distressed with the patient that her vitals have been stable,?repeat H&H came back at 08/21.3, recommended to the patient to admit for observation overnight with pain management and repeat a.m. H&H. The patient was kept NPO, oxycodone 5 mg p.o. Q 3 hours p.r.n. moderate pain and 10 mg p.o. Q 3 hours severe pain, Toradol 30 mg IV Q 6 p.r.n. moderate pain, to repeat H&H in the morning of observation Hospital day 1. ?The patient was doing well with no complaints, only minimal abdominal pain, she was still NPO, and was voiding freely.? ?The patient was Ambulating well and was Voiding with no difficulty Diet was advanced to regular and once tolerated the patient was discharged patient home. Discharge diagnosis ruptured ovarian cyst Discharge instructions: The patient to call in case of persistence or worsening of her pain, temperature above 100.4, nausea or vomiting or heavy vaginal bleeding.? Follow-up in the office in 2 weeks.? Will Repeat ultrasound to follow-up on the ovarian cyst in few weeks.? Ibuprofen 600 mg p.o. Q 6-8 p.r.n. pain, Tylenol 650 mg p.o. Q 8 p.r.n. pain, oxycodone 5 mg p.o. Q 4 p.r.n. pain # 15 with 0 refill
== END 2021-12-07 17:00 | disposition home or self-care (01) ==
LOC: HO.ED 18:13 → HO.EDOVER 18:15
PROVIDERS: Nurse Practitioner Family; Physician Assistant; Admitting Provider Obstetrics & Gynecology; Emergency Provider Emergency Medicine; PCP Pediatrics; Visit Provider Obstetrics & Gynecology
DX: N83.209 Unspecified ovarian cyst, unspecified side (principal); R10.9 Unspecified abdominal pain; R07.89 Other chest pain; M25.512 Pain in left shoulder; N93.9 Abnormal uterine and vaginal bleeding, unspecified; Q50.39 Other congenital malformation of ovary; I47.1 Supraventricular tachycardia; I48.91 Unspecified atrial fibrillation; Z20.822 Contact with and (suspected) exposure to COVID-19; Z98.890 Other specified postprocedural states; Z97.5 Presence of (intrauterine) contraceptive device; Z79.899 Other long term (current) drug therapy
CPT/HCPCS: 36415; 76830; 76856; 80053; 81003; 81025; 85025; 85027; 85610; 85730; 86850; 86900; 86901; 87480; 87491; 87510; 87591; 87635; 87660; 93005; 96361; 96374; 96375; 99218; 99285; J1885; J2270; J2405; Q0163

== ENCOUNTER 2021-12-12 13:42 | Emergency (ER) | payer BC, SELFPAY ==
--- NOTE | ~2021-12-12 | CT_ITS ---
EXAMINATION: CT abdomen pelvis w con CLINICAL INFORMATION: Reason for Exam diffuse abdominal pain, fever. +UTI +Ovarian cyst COMPARISON: No prior CT available for comparison. TECHNIQUE: Multidetector volumetric imaging was performed from the superior aspect of the liver through the pubic symphysis approximately 85 mL of Omnipaque 350 injected Sagittal and coronal reformatted images were obtained on the technologist's workstation. This CT examination was performed using dose optimization techniques as appropriate, variously including the following: *Automated exposure control *Adjustment of mA and/or kV according to patient size (this includes techniques or standardized protocols for targeted exams where dose is matched to indication/reason for exam; i.e. extremities or head) *Use of iterative reconstruction technique DLP: 645 mGy-cm FINDINGS: LOWER THORAX: Included lung bases are clear. HEPATOBILIARY: No focal hepatic lesions. No biliary ductal dilatation. GALLBLADDER: Gallbladder unremarkable. SPLEEN: Spleen is enlarged 14 x 6 cm. PANCREAS: No focal mass or ductal dilatation. STOMACH AND GASTROINTESTINAL TRACT: Stomach is grossly unremarkable. There is no bowel distention or thickening. No CT evidence of appendicitis. ADRENALS: No adrenal nodules. KIDNEYS/URETERS: No hydronephrosis, stones or solid mass lesions. URINARY BLADDER: Partially decompressed. PELVIC VISCERA: There is fluid surrounding the uterus, uncertain etiology, there is cystic structure in the left adnexa 2.7 cm most likely of left ovarian origin. PERITONEUM: No free air or fluid. LYMPH NODES: No lymphadenopathy. VASCULAR:Abdominal aorta normal in size, no aneurysm found. BONES, ABDOMINAL WALL AND SOFT TISSUES: Age-appropriate changes of the spine and skeletal system, no destructive osteolytic or osteosclerotic bone lesion found CT/CT abdomen pelvis w con IMPRESSION: *There is a fluid in the pelvis surrounding the uterus along with 2.7 cm cystic structure with surrounding fluid in the left adnexa probably of left ovarian origin, this is nonspecific and does correlate with the finding seen on the ultrasound done same day. Ultrasound pelvis is more sensitive for soft tissue evaluation of pelvic organs than CT scan. *IUD in place. *Spleen mildly enlarged measuring 14 cm. *CT scan otherwise is normal. No evidence of appendicitis. No free air or fluid.
--- NOTE | ~2021-12-12 | US_ITS ---
EXAMINATION: US PELVIS CLINICAL INFORMATION: Diffuse pain COMPARISON: 12/06/2021 TECHNIQUE: Ultrasound of the pelvis is performed using both transabdominal and transvaginal transducers along with Doppler. Transvaginal imaging is performed due to inadequate visualization transabdominally. FINDINGS: Uterus: The uterus is anteverted and measures 7.8 x 3.8 x 5.1 cm. IUD as previously noted. The double wall endometrial thickness is 4 mm. The uterus is smooth in contour and has normal myometrial echogenicity. No visible fibroid. Adnexa: Right ovary remains unremarkable. Left ovary demonstrates further enlargement now measuring up to 58 mL in volume. This has enlarged significantly in the interim. There continues to be no active signs of any active torsion. This cystic masses unilocular demonstrates internal intermediate echogenicity. There is suggestion of some mineralizing clot favoring a hemorrhagic cyst. Moderate free fluid in the cul-de-sac. US/US pelvic and transvaginal IMPRESSION: Enlarging cystic lesion left ovary. Diagnostic considerations include a dominant corpus luteal cyst versus an entity such as an endometrioma or even a cystic neoplasm. Follow-up in 6 weeks recommended. Patient has IUD in place. Correlated with any possibility of as noted previously.
--- NOTE | ~2021-12-12 | US_ITS ---
EXAMINATION: US PELVIS CLINICAL INFORMATION: Diffuse pain COMPARISON: 12/06/2021 TECHNIQUE: Ultrasound of the pelvis is performed using both transabdominal and transvaginal transducers along with Doppler. Transvaginal imaging is performed due to inadequate visualization transabdominally. FINDINGS: Uterus: The uterus is anteverted and measures 7.8 x 3.8 x 5.1 cm. IUD as previously noted. The double wall endometrial thickness is 4 mm. The uterus is smooth in contour and has normal myometrial echogenicity. No visible fibroid. Adnexa: Right ovary remains unremarkable. Left ovary demonstrates further enlargement now measuring up to 58 mL in volume. This has enlarged significantly in the interim. There continues to be no active signs of any active torsion. This cystic masses unilocular demonstrates internal intermediate echogenicity. There is suggestion of some mineralizing clot favoring a hemorrhagic cyst. Moderate free fluid in the cul-de-sac. US/US pelvic ovarian doppler IMPRESSION: Enlarging cystic lesion left ovary. Diagnostic considerations include a dominant corpus luteal cyst versus an entity such as an endometrioma or even a cystic neoplasm. Follow-up in 6 weeks recommended. Patient has IUD in place. Correlated with any possibility of as noted previously.
[2021-12-12 13:51] VITALS: BP 123/78; PULSE 108; RESP 18; TEMP 37.6; O2SAT 98; BMI 33.7
--- NOTE | 2021-12-12 13:59 | ECG_ITS ---
Test Reason : lightheaded Blood Pressure : / mmHG Vent. Rate : 097 BPM Atrial Rate : 097 BPM P-R Int : 146 ms QRS Dur : 094 ms QT Int : 346 ms P-R-T Axes : 028 066 025 degrees QTc Int : 439 ms Normal sinus rhythm Normal ECG When compared with ECG of 06-DEC-2021 14:12, T wave inversion no longer evident in Anterior leads Referred By: Yancy Bae Electronically Signed By:BOBBY IBARRA MD
[2021-12-12 14:23] VITALS: BP 125/70; PULSE 106; RESP 18; TEMP 38.6; O2SAT 97
[2021-12-12 14:32] LABS: MANUAL DIFF FLAG NO
[2021-12-12 14:35] LABS: Appearance Urine HAZY; Color Urine YELLOW; Glucose Urine UA NEG (NEG); Leukocyte Esterase Urine TRACE (NEG); Nitrite Urine NEG (NEG); PH 7.5 (5.0-8.0); Specific Gravity - Urine 1.015 (1.005-1.025); UACC Culture Trigger YES; Urine Blood NEG (NEG); Urine Ketones 5 MG/DL (NEG); Urine Protein NEG (NEG-TRACE)
[2021-12-12 14:38] LABS: UPreg QC Valid YES
[2021-12-12] MEDS: metroNIDAZOLE 500 MG TABLET PO (14:38)
[2021-12-12] MEDS: Morphine Sulfate 2 MG/ML CARTRIDGE IVPUSH (14:38)
[2021-12-12] MEDS: Fluconazole 150 MG TABLET PO (14:38)
[2021-12-12] MEDS: Acetaminophen 325 MG TABLET 650 MG PO (14:38)
[2021-12-12] MEDS: ondansetron HCL 4 MG/2 ML VIAL IVPUSH (14:38)
[2021-12-12] MEDS: Famotidine/PF 20 MG/2 ML VIAL IVPUSH (14:38)
[2021-12-12 14:39] LABS: Basophils Percent Auto 0.2 % (0-2); Eosinophils Absolute Auto 0.1 X10*3/uL (0.0-0.4); Eosinophils Percent Auto 1.7 % (0-4); Hematocrit 35.3 % (37.0-47.0); Hemoglobin 12.3 g/dl (12.0-16.0); Imm Gran Abs Auto 0.02 X10*3/uL (0.00-0.03); Imm Gran Pct Auto 0.3 % (0.0-0.4); Lymphocytes Absolute Auto 0.5 X10*3/uL (1.2-4.9); Lymphocytes Percent Auto 8.7 % (20-40); Mean Corpuscular HGB Conc 34.8 g/dl (31.0-35.0); Mean Corpuscular Hemoglobin 29.4 pg (27.0-33.0); Mean Corpuscular Volume 84.4 fL (80.0-98.0); Mean Platelet Volume 9.6 fL (9.4-12.3); Monocytes Absolute Auto 0.4 X10*3/uL (0.1-1.2); Monocytes Percent Auto 6.9 % (2-11); Neutrophils Absolute Auto 4.9 x10*3/uL (2.0-8.3); Neutrophils Percent Auto 82.2 % (45-73); Platelet Count 181 X10*3/uL (160-400); Red Blood Count 4.18 X10*6/uL (4.20-5.50); Red Cell Distribution Width 12.8 % (11.0-16.0); Urine Pregnancy NEGATIVE (NEGATIVE)
[2021-12-12 14:41] LABS: RBC Urine 0-2 /HPF (0)
[2021-12-12 14:42] LABS: Mucus Urine 2+ /LPF; Squamous Epithelial Cell Urine 2+ /LPF
[2021-12-12] MEDS: 0.9 % Sodium Chloride 1,000 ML 999 ML IV (14:42)
--- NOTE | 2021-12-12 14:42 | ED.FEMALEGU ---
HPI - Female Genitourinary General Chief complaint: Urogenital-Female Stated complaint: Ovarian cyst rupture 1 wk ago- not feeling well Time Seen by Provider: 12/12/21 13:46 Source: patient Mode of arrival: ambulatory History of Present Illness HPI Narrative: 21-year-old female past medical history SVT, s/p ruptured ovarian cyst on 12/06/2021, UTI started on Macrobid yesterday, presenting to the ED complaining of continued/persistent diffuse abdominal pain, nausea, and lightheadedness. Also reports white vaginal discharge. Denies fever, vomiting, diarrhea, dysuria/hematuria, vaginal bleeding, CP/SOB. Reports minimally sexually active. MD elicited complaint: UTI and vaginal discharge Related Data Home Medications Medication Instructions Recorded Confirmed bupropion HCl 300 mg 24 hr tablet, 1 tab PO DAILY 12/06/21 12/06/21 extended release buspirone 10 mg tablet 3 tab PO BID 12/06/21 12/06/21 cetirizine 10 mg tablet (Zyrtec) 10 mg PO BID 12/06/21 12/06/21 docusate sodium 50 mg capsule 50 mg PO BID 12/06/21 12/06/21 escitalopram oxalate 10 mg tablet 1 tab PO DAILY 12/06/21 12/06/21 escitalopram oxalate 20 mg tablet 1 tab PO DAILY 12/06/21 12/06/21 famotidine 20 mg tablet (Pepcid) 20 mg PO BID 12/06/21 12/06/21 fexofenadine 60 mg tablet 60 mg PO DAILY 12/06/21 12/06/21 glycopyrrolate 1 mg tablet 2 mg PO BID 12/06/21 12/06/21 methenamine hippurate 1 gram tablet 1 g PO BID 12/06/21 12/06/21 multivitamin 1 tab PO DAILY 12/06/21 12/06/21 omeprazole magnesium 20 mg 20 mg PO DAILY 12/06/21 12/06/21 tablet,delayed release (Prilosec OTC) sennosides 25 mg tablet 25 mg PO DAILY 12/06/21 12/06/21 Previous Rx's Medication Instructions Recorded oxycodone 5 mg tablet 5 mg PO Q4H PRN #14 tab 12/07/21 ketorolac 10 mg tablet 10 mg PO TID PRN 5 Days #15 tab 12/12/21 levofloxacin 500 mg tablet 500 mg PO DAILY 14 Days #14 tab 12/12/21 metronidazole 500 mg tablet 500 mg PO Q12H 14 Days #28 tab 12/12/21 Allergies Allergy/AdvReac Type Severity Reaction Status Date / Time No Known Allergies Allergy Verified 12/06/21 13:56 Review of Systems Review of Systems: Constitutional:No Fever, No Chills, No Fatigue, No Malaise ENT/Mouth: No Ear Pain, No Nasal Congestion, No Sinus Pain, No Hoarseness, No sore throat, No Rhinorrhea, No Swallowing Difficulty Eyes: No Eye Pain, No Swelling, No Redness Cardiovascular: No Chest Pain, No SOB, No Edema, No Palpitations Respiratory: No Cough, No Sputum, No Dyspnea Gastrointestinal: + Nausea, No Vomiting, No Diarrhea, No Constipation, + Abdominal pain Genitourinary: No irregular bleeding, + white vaginal discharge, No Dysuria, No Hematuria, No Urinary Incontinence,No Flank Pain Musculoskeletal: No joint pain, No Myalgias, No Joint Swelling Skin: No Skin Lesions, No rash Neuro: No Weakness, No Numbness, No Loss of Consciousness, + lightheadedness, No Headache Yes all other systems are reviewed and are negative PENDING SALE TO [facility] Past Medical History Attestation statement: The following information was validated with the patient. Medical History SVT (supraventricular tachycardia) Surgical History H/O cardiac radiofrequency ablation History of hip surgery Social History Social History Alcohol intake: never Patient Tobacco Use Status: Never used Tobacco Use of substances other than those prescribed or required for medical reasons: No Advance Directives: No Advance Directives Information Provided: Yes Patient : No service: No Current occupational status: student Physical Exam Vital Signs: Vital Signs: Last Vital Signs Temp 99 F 12/12/21 14:46 Pulse 106 H 12/12/21 14:23 Resp 18 12/12/21 14:23 BP 125/70 12/12/21 14:23 Pulse Ox 97 12/12/21 14:23 BMI result Body Mass Index 33.7 Const: Other: Appears in pain General: cooperative and healthy appearing Orientation/consciousness: patient oriented x3 Limitations: no limitations HENMT: Head: Yes normal to inspection Ears: hearing grossly normal bilaterally General nose exam: Normal external nose present Face and sinus: Yes normal facial exam Eyes: General: appearance normal, both eyes and all related structures EOM: EOMs intact bilaterally Neck: Neck: Yes normal visual inspection and Yes no meningeal signs Resp: Effort & Inspection: normal respiratory effort Auscultation: clear to auscultation bilaterally Cardio: Rate: regular rate Heart sounds: S1 normal heart sound present and S2 normal heart sound present GI: Inspection: Yes normal to inspection Palpation (GI): Soft to palpation, Tenderness to palpation present (GI) (Diffusely), no guarding and not rigid : General: Yes no CVA tenderness Back/Spine/Pelvis: Back: no CVA tenderness Skin: Rashes: no rashes Wounds: no wounds Neuro: General: patient oriented x3 and no meningeal signs Gait exam (Neuro): Normal gait present Extrem: General: Yes normal to inspection Course Course Course Narrative: -1442--patient spiked fever to 101.5.>> will cover empirically with IV Zosyn, still low suspicion for severe sepsis -no leukocytosis. H&H stable. Labs otherwise unremarkable. Lactic acid negative. -UA infected with 10-14 wbc's and trace leuk esterase > patient started Macrobid yesterday -patient refused IV Zosyn. Patient does not meet severe sepsis criteria, no leukocytosis, no lactic acidosis US pelvic and transvaginal IMPRESSION: Enlarging cystic lesion left ovary. Diagnostic considerations include a dominant corpus luteal cyst versus an entity such as an endometrioma or even a cystic neoplasm. Follow-up in 6 weeks recommended. Patient has IUD in place. Correlated with any possibility of as noted previously. >> OBGYN paged for consultation -spoke to EVAN Casillas, unlikely enhancing cyst causing patient's fever. Fever could be from UTI or ?PID although less likely as gonorrhea and chlamydia both negative. Dr. Worley will come to emergency department to evaluate patient. Will also obtain CT to rule out other causes of fever/pain -Dr. Worley evaluated patient in the ED, perform pelvic exam reported mild tenderness. Recommended empiric treatment of PID/UTI with Levaquin and Flagyl then follow-up in office next week, pending negative CT CT abdomen pelvis w con IMPRESSION: *There is a fluid in the pelvis surrounding the uterus along with 2.7 cm cystic structure with surrounding fluid in the left adnexa probably of left ovarian origin, this is nonspecific and does correlate with the finding seen on the ultrasound done same day. Ultrasound pelvis is more sensitive for soft tissue evaluation of pelvic organs than CT scan. *IUD in place. *Spleen mildly enlarged measuring 14 cm. *CT scan otherwise is normal. No evidence of appendicitis. No free air or fluid. >> results discussed with patient and aunt at bedside including worsen signs and symptoms and strict return precautions. Plan to DC home with 14 day course of metronidazole and Levaquin to treat empirically for PID/UTI, they verbalized understanding and feel safe for discharge home MDM - Female Genitourinary MDM Narrative Medical decision making narrative: 21-year-old female past medical history SVT, s/p ruptured ovarian cyst on 12/06/2021, UTI started on Macrobid yesterday, presenting to the ED complaining of continued/persistent diffuse abdominal pain, nausea, and lightheadedness. On exam tachycardic likely from pain, abdomen soft/diffusely tender, exam deferred as cultures from 12/06 positive for BV & Jenny and patient was not treated > thus suspected etiology of vaginal discharge. No CVAT. Concern for anemia vs continued ovarian cyst pain vs TOA vs UTI/ pyelo. Unlikely PID with negative CT/NG. Lower concern for appendicitis or diverticulitis. Tachycardia likely from pain, low concern for severe sepsis at this time. Will give p.o. Flagyl and Diflucan for untreated BV and Jenny Plan: EKG, Labs, UA, repeat ultrasound, IVF, pain management, re-evaluate Differential Diagnosis Differential diagnosis: Likely urinary tract infection Medical Records Attestation: I reviewed the patient's medical records. Lab Data Attestation: I reviewed the patient's lab results. Result diagrams: 12/12/21 14:21 12/12/21 14:21 Labs: Lab Results 12/12/21 12/12/21 12/12/21 Range/Units 14:21 14:21 14:21 WBC 6.0 (4.8-10.8) X10*3/uL RBC 4.18 L D (4.20-5.50) X10*6/uL Hgb 12.3 D (12.0-16.0) g/dl Hct 35.3 L D (37.0-47.0) % MCV 84.4 (80.0-98.0) fL MCH 29.4 (27.0-33.0) pg MCHC 34.8 (31.0-35.0) g/dl RDW 12.8 (11.0-16.0) % Plt Count 181 (160-400) X10*3/uL MPV 9.6 (9.4-12.3) fL Immature Gran % (Auto) 0.3 (0.0-0.4) % Neut % (Auto) 82.2 H (45-73) % Lymph % (Auto) 8.7 L (20-40) % Leon % (Auto) 6.9 (2-11) % Eos % (Auto) 1.7 (0-4) % Baso % (Auto) 0.2 (0-2) % Lymph # (Auto) 0.5 L (1.2-4.9) X10*3/uL Leon # (Auto) 0.4 (0.1-1.2) X10*3/uL Eos # (Auto) 0.1 (0.0-0.4) X10*3/uL Baso # (Auto) 0.0 (0.0-0.2) X10*3/uL Abs Immat Gran (auto) 0.02 (0.00-0.03) X10*3/uL Absolute Neuts (auto) 4.9 (2.0-8.3) x10*3/uL Absolute Nucleated RBC 0.000 (0.0-0.012) X10*3/uL Nucleated RBC % (auto) 0.0 (0.0-0.2) /100WBC Sodium 136 (135-145) mmol/L Potassium 4.6 (3.3-5.1) mmol/L Chloride 103 (96-108) mmol/L Carbon Dioxide 25 (22-29) mmol/L Anion Gap 13 (12-20) BUN 13 (9-16) mg/dL Creatinine 0.77 (0.5-1.4) mg/dL Estim Creat Clear Calc 126.0 Estimated GFR > 60 Random Glucose 102 (60-115) mg/dL Lactic Acid (0.5-2.0) mmol/L Calcium 9.4 (8.4-10.2) mg/dL Magnesium 1.6 (1.6-2.6) mg/dL Total Bilirubin 0.6 (0.0-1.0) mg/dL Direct Bilirubin 0.3 (0.0-0.5) mg/dL AST 25 D (5-31) U/L ALT 25 (0-31) U/L Alkaline Phosphatase 83 (39-117) U/L Total Protein 7.2 (6.5-8.0) g/dL Albumin 4.3 (3.5-5.0) g/dL Lipase 13 (8-78) U/L Urine Color Urine Appearance Urine pH (5.0-8.0) Ur Specific [place] (1.005-1.025) Urine Protein (NEG-TRACE) MG/DL Urine Glucose (UA) (NEG) MG/DL Urine Ketones (NEG) MG/DL Urine Blood (NEG) Urine Nitrite (NEG) Ur Leukocyte Esterase (NEG) Urine RBC (0) /HPF Urine WBC (0-4) /HPF Ur Squamous Epith Cells /LPF Urine Bacteria /LPF Urine Mucus /LPF Urine Test (NEGATIVE) COVID-19 (GERA) Negative (Negative) COVID-19 Clin Com See Note 12/12/21 12/12/21 12/12/21 Range/Units 14:21 14:21 14:59 WBC (4.8-10.8) X10*3/uL RBC (4.20-5.50) X10*6/uL Hgb (12.0-16.0) g/dl Hct (37.0-47.0) % MCV (80.0-98.0) fL MCH (27.0-33.0) pg MCHC (31.0-35.0) g/dl RDW (11.0-16.0) % Plt Count (160-400) X10*3/uL MPV (9.4-12.3) fL Immature Gran % (Auto) (0.0-0.4) % Neut % (Auto) (45-73) % Lymph % (Auto) (20-40) % Leon % (Auto) (2-11) % Eos % (Auto) (0-4) % Baso % (Auto) (0-2) % Lymph # (Auto) (1.2-4.9) X10*3/uL Leon # (Auto) (0.1-1.2) X10*3/uL Eos # (Auto) (0.0-0.4) X10*3/uL Baso # (Auto) (0.0-0.2) X10*3/uL Abs Immat Gran (auto) (0.00-0.03) X10*3/uL Absolute Neuts (auto) (2.0-8.3) x10*3/uL Absolute Nucleated RBC (0.0-0.012) X10*3/uL Nucleated RBC % (auto) (0.0-0.2) /100WBC Sodium (135-145) mmol/L Potassium (3.3-5.1) mmol/L Chloride (96-108) mmol/L Carbon Dioxide (22-29) mmol/L Anion Gap (12-20) BUN (9-16) mg/dL Creatinine (0.5-1.4) mg/dL Estim Creat Clear Calc Estimated GFR Random Glucose (60-115) mg/dL Lactic Acid 0.9 (0.5-2.0) mmol/L Calcium (8.4-10.2) mg/dL Magnesium (1.6-2.6) mg/dL Total Bilirubin (0.0-1.0) mg/dL Direct Bilirubin (0.0-0.5) mg/dL AST (5-31) U/L ALT (0-31) U/L Alkaline Phosphatase (39-117) U/L Total Protein (6.5-8.0) g/dL Albumin (3.5-5.0) g/dL Lipase (8-78) U/L Urine Color YELLOW Urine Appearance HAZY Urine pH 7.5 (5.0-8.0) Ur Specific [place] 1.015 (1.005-1.025) Urine Protein NEG (NEG-TRACE) MG/DL Urine Glucose (UA) NEG (NEG) MG/DL Urine Ketones 5 (NEG) MG/DL Urine Blood NEG (NEG) Urine Nitrite NEG (NEG) Ur Leukocyte Esterase TRACE H (NEG) Urine RBC 0-2 (0) /HPF Urine WBC 10-14 H (0-4) /HPF Ur Squamous Epith Cells 2+ /LPF Urine Bacteria NONE /LPF Urine Mucus 2+ /LPF Urine Test NEGATIVE (NEGATIVE) COVID-19 (GERA) (Negative) COVID-19 Clin Com ECG Data Attestation: I personally reviewed and interpreted this ECG as follows: ECG interpretation date: 12/12/21 ECG interpretation time: 14:09 Prior ECG tracings: available for review Interpretation: EKG normal sinus rhythm. T-wave inversions no longer evident in anterior leads when compared to prior EKG. Rate of 97. QRS 94. QTC 439. No STEMI Discharge Plan Discharge Clinical Impression: Complex cyst of left ovary, UTI (urinary tract infection), Pelvic inflammatory disease (PID) Patient Disposition: Home, Self-Care Instructions: Pelvic Inflammatory Disease (DC), Ovarian Cyst (ED), Urinary Tract Infection in Women (DC) Additional Instructions: Your ultrasound shows enlarging cyst on her left ovary. Your cultures from December 06 were positive for bacterial vaginosis and yeast infection, you were treated for yeast infection today in the emergency department You have a urinary tract infection, there is also concern for possible pelvic inflammatory disease. Levaquin and metronidazole are antibiotics please take as prescribed You need to follow-up in Dr. Worley /OBGYN office in 1 week If you have persistent/unbearable pain, developed persistent fevers, fever unresolved with medication, vomiting please return to the emergency department Prescriptions: New metronidazole 500 mg tablet 500 mg PO Q12H 14 Days Qty: 28 0RF levofloxacin 500 mg tablet 500 mg PO DAILY 14 Days Qty: 14 0RF ketorolac 10 mg tablet 10 mg PO TID PRN (Reason: pain) 5 Days Qty: 15 0RF No Action glycopyrrolate 1 mg tablet 2 mg PO BID 0RF methenamine hippurate 1 gram tablet 1 g PO BID 0RF buspirone 10 mg tablet 3 tab PO BID 0RF escitalopram oxalate 10 mg tablet 1 tab PO DAILY 0RF escitalopram oxalate 20 mg tablet 1 tab PO DAILY 0RF bupropion HCl 300 mg tablet extended release 24 hr 1 tab PO DAILY 0RF multivitamin Tablet 1 tab PO DAILY 0RF fexofenadine [Daily] 60 mg Tablet 60 mg PO DAILY 0RF cetirizine [Zyrtec] 10 mg Tablet 10 mg PO BID 0RF docusate sodium 50 mg Capsule 50 mg PO BID 0RF famotidine [Pepcid] 20 mg Tablet 20 mg PO BID 0RF Laxative-Senna 25 mg Tablet 25 mg PO DAILY 0RF omeprazole magnesium [Prilosec OTC] 20 mg Tablet,Delayed Release (Dr/Ec) 20 mg PO DAILY 0RF oxycodone 5 mg Tablet 5 mg PO Q4H PRN (Reason: Pain, Moderate (Pain Scale 4-6) Qty: 14 0RF Referrals: Slick Worley MD [Physician] - 1 week
[2021-12-12 14:46] VITALS: TEMP 37.2
[2021-12-12 14:58] LABS: Alanine Aminotransferase 25 U/L (0-31); Albumin Level 4.3 g/dL (3.5-5.0); Alkaline Phosphatase 83 U/L (39-117); Anion Gap 13 (12-20); Aspartate Amino Transferase 25 U/L (5-31); Bilirubin Direct 0.3 mg/dL (0.0-0.5); Bilirubin Total 0.6 mg/dL (0.0-1.0); Blood Urea Nitrogen 13 mg/dL (9-16); Calcium 9.4 mg/dL (8.4-10.2); Carbon Dioxide 25 mmol/L (22-29); Chloride 103 mmol/L (96-108); Estimated Glomerular Filt Rate > 60; Glucose Random 102 mg/dL (60-115); Lipase 13 U/L (8-78); Magnesium 1.6 mg/dL (1.6-2.6); Potassium 4.6 mmol/L (3.3-5.1); Sodium 136 mmol/L (135-145); Total Protein 7.2 g/dL (6.5-8.0)
[2021-12-12 14:59] LABS: COVID-19 Test Negative (Negative); IDNOW Serial# 55D5AD1C
[2021-12-12 15:20] LABS: Lactic Acid 0.9 mmol/L (0.5-2.0)
[2021-12-12] MEDS: iohexoL 350 MG/ML 100 ML INFUS..BTL IV (17:39)
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
[2021-12-13 02:08] LABS: CT PCR NOT DETECTED (Not Detect.); NG PCR NOT DETECTED (Not Detect.)
[2021-12-13 09:22] LABS: BV Int Neg Control Negative (Negative); BV Int Pos Control Positive (Positive)
== END 2021-12-12 19:17 | disposition home or self-care (01) ==
PROVIDERS: Physician Assistant; Emergency Provider Emergency Medicine; PCP Pediatrics
DX: N83.292 Other ovarian cyst, left side (principal); N39.0 Urinary tract infection, site not specified; N73.9 Female pelvic inflammatory disease, unspecified; N76.0 Acute vaginitis; R10.9 Unspecified abdominal pain; R50.9 Fever, unspecified; R00.0 Tachycardia, unspecified; Z20.822 Contact with and (suspected) exposure to COVID-19
CPT/HCPCS: 36415; 74177; 76830; 76856; 80048; 80076; 81001; 81025; 83605; 83690; 83735; 85025; 87040; 87086; 87480; 87491; 87510; 87591; 87635; 87660; 93005; 93975; 96361; 96374; 96375; 99284; 99285; J2270; J2405; Q9967

== ENCOUNTER → 2021-12-22 11:42 | Outpatient (BNVA) | payer BC, SELFPAY | PROVIDERS: PCP Pediatrics; Visit Provider Obstetrics & Gynecology ==

== ENCOUNTER 2022-02-23 15:37 | Outpatient (REF) | payer BC, SELFPAY ==
--- NOTE | ~2022-02-23 | US_ITS ---
EXAMINATION: US PELVIS CLINICAL INFORMATION: Ovarian cyst COMPARISON: Previous pelvic ultrasound and CT of the abdomen and pelvis November 2021 TECHNIQUE: Ultrasound of the pelvis is performed using both transabdominal and transvaginal transducers along with Doppler. Transvaginal imaging is performed due to inadequate visualization transabdominally. FINDINGS: The uterus is retroverted and measures 8 x 3.2 x 4.5 cm in dimension. There is an IUD in the uterus in satisfactory position. Endometrial thickness is normal measuring 0.7 cm. No focal uterine lesion is seen. The ovaries are normal-appearing. The right ovary measures 3.4 x 1.5 x 2.6 cm. The left ovary measures 3.1 x 1.4 x 2.1 cm. There is no fluid in the pelvis. US/US pelvic and transvaginal IMPRESSION: IUD in the uterus in satisfactory position. Otherwise unremarkable exam. The previously identified left ovarian cyst is no longer seen.
== END 2022-02-23 15:38 | disposition home or self-care (01) ==
LOC: HO.US 15:37
PROVIDERS: Visit Provider Obstetrics & Gynecology
DX: N83.202 Unspecified ovarian cyst, left side (principal)
CPT/HCPCS: 76830; 76856

== ENCOUNTER → 2022-03-09 12:06 | Outpatient (BNVA) | payer BC, SELFPAY | PROVIDERS: PCP Pediatrics; Visit Provider Obstetrics & Gynecology | DX: Z13.89 Encounter for screening for other disorder (principal) ==

== ENCOUNTER 2022-12-21 00:19 | Emergency (ER) | payer BC, SELFPAY ==
[2022-12-21 00:22] VITALS: BP 120/86; BP 121/70; PULSE 84; PULSE 90; RESP 20; TEMP 37.1; O2SAT 99; BMI 38.0
--- NOTE | 2022-12-21 00:27 | ED.CHESTPAIN ---
HPI - Chest Pain General Chief Complaint: Chest Pain Stated Complaint: Chest Pressure Time Seen by Provider: 12/21/22 00:26 Source: patient Mode of arrival: EMS Limitations: no limitations History of Present Illness HPI narrative: Patient with History of anxiety, SVT nonsmoker no substance abuse while watching TV noticed heart was racing with tightness in the throat feeling hot became very anxious after arrival patient's heart rate is less than 100 sinus rhythm vitals are stable Related Data Home Medications Medication Instructions Recorded Confirmed bupropion HCl 300 mg 24 hr tablet, 1 tab PO DAILY 12/06/21 12/06/21 extended release buspirone 10 mg tablet 3 tab PO BID 12/06/21 12/06/21 cetirizine 10 mg tablet (Zyrtec) 10 mg PO BID 12/06/21 12/06/21 escitalopram oxalate 10 mg tablet 1 tab PO DAILY 12/06/21 12/06/21 escitalopram oxalate 20 mg tablet 1 tab PO DAILY 12/06/21 12/06/21 famotidine 20 mg tablet (Pepcid) 20 mg PO BID 12/06/21 12/06/21 glycopyrrolate 1 mg tablet 2 mg PO BID 12/06/21 12/06/21 methenamine hippurate 1 gram tablet 1 g PO BID 12/06/21 12/06/21 multivitamin 1 tab PO DAILY 12/06/21 12/06/21 omeprazole magnesium 20 mg 20 mg PO DAILY 12/06/21 12/06/21 tablet,delayed release (Prilosec OTC) levonorgestrel 20 mcg/24 hours (8 intrauterine 12/22/21 yrs) 52 mg intrauterine device (Mirena) Previous Rx's Medication Instructions Recorded ketorolac 10 mg tablet 10 mg PO TID PRN pain 5 days #15 12/12/21 tabs levofloxacin 500 mg tablet 500 mg PO DAILY 14 days #14 tabs 12/12/21 metronidazole 500 mg tablet 500 mg PO Q12H 14 days #28 tabs 12/12/21 Allergies Allergy/AdvReac Type Severity Reaction Status Date / Time No Known Allergies Allergy Verified 12/06/21 13:56 Review of Systems Review of Systems: Yes all other systems are reviewed and are negative PMFSH Past Medical History Medical History SVT (supraventricular tachycardia) Surgical History H/O cardiac radiofrequency ablation History of hip surgery Social History Social History Alcohol intake: current Alcohol intake frequency: holidays/special occasions only Patient Tobacco Use Status: Never used Tobacco Smoked in Last 30 Days: No Use of substances other than those prescribed or required for medical reasons: No Advance Directives: No Patient : No service: No Current occupational status: student Physical Exam Vital Signs: Vital Signs: Last Vital Signs Temp 98.7 F 12/21/22 00:22 Pulse 92 12/21/22 02:24 Resp 18 12/21/22 02:24 BP 132/80 12/21/22 02:24 Pulse Ox 96 12/21/22 02:24 O2 Del Method 12/21/22 02:24 BMI result Body Mass Index 38.0 Appearance: Alert. Oriented X3. No acute distress. Anxious Eyes: PERRLA, No Nystagmus ENT: Pharynx normal. Oral Mucosa moist Neck: Normal inspection. Neck supple. CVS: Normal heart rate and rhythm. Pulses normal. No murmur/rub Respiratory: No respiratory distress. Equal air entry bilateral, no wheezing/rales/rhonchi Abdomen: Soft and nontender. Bowel sounds are present, no mass palpable, no CVA tenderness Skin: Skin warm and dry. Normal skin color. Normal skin turgor. Extremities: No lower extremity edema. No calf tenderness Neuro: Oriented X 3. No motor deficit. Medical Decision Making Medical Decision Making MDM Narrative: Patient anxiety with normal EKG cardiac monitoring showing normal rhythm with history of same in the past patient was monitored for 1 hour without any ectopic or a tachycardia advised follow-up with PCP Independent Interpretation I performed an independent interpretation of an: EKG Interpretation: Normal sinus rhythm heart rate 88 beats per minute normal interval normal axis no acute ST wave changes no acute ischemia Discharge Plan Discharge Clinical Impression: Heart palpitations Patient Disposition: Home, Self-Care Instructions: Heart Palpitations (ED) Additional Instructions: Avoid caffeine/stress Fall the PCP as needed Report to ER if he has sustained palpitation lasting more than 15 minutes/passing out Prescriptions: No Action glycopyrrolate 1 mg tablet 2 mg PO BID methenamine hippurate 1 gram tablet 1 g PO BID buspirone 10 mg tablet 3 tab PO BID escitalopram oxalate 10 mg tablet 1 tab PO DAILY escitalopram oxalate 20 mg tablet 1 tab PO DAILY bupropion HCl 300 mg tablet extended release 24 hr 1 tab PO DAILY multivitamin Tablet 1 tab PO DAILY cetirizine [Zyrtec] 10 mg Tablet 10 mg PO BID famotidine [Pepcid] 20 mg Tablet 20 mg PO BID omeprazole magnesium [Prilosec OTC] 20 mg Tablet,Delayed Release (Dr/Ec) 20 mg PO DAILY metronidazole 500 mg tablet 500 mg PO Q12H 14 Days Qty: 28 0RF levofloxacin 500 mg tablet 500 mg PO DAILY 14 Days Qty: 14 0RF ketorolac 10 mg tablet 10 mg PO TID PRN (Reason: pain) 5 Days Qty: 15 0RF Mirena 20 mcg/24 hours (7 yrs) 52 mg intrauterine device intrauterine Stand Alone Forms: Work/School Release Interventions: ED Discharge Assessment Last Done: 12/21/22 02:26 Discharge Date/Time: 12/21/22 02:32
--- NOTE | 2022-12-21 00:33 | ECG_ITS ---
Test Reason : CHEST PAIN Blood Pressure : / mmHG Vent. Rate : 088 BPM Atrial Rate : 088 BPM P-R Int : 144 ms QRS Dur : 104 ms QT Int : 380 ms P-R-T Axes : 024 062 015 degrees QTc Int : 459 ms Normal sinus rhythm Normal ECG When compared with ECG of 12-DEC-2021 14:09, No significant change was found Referred By: Michael Agustin Electronically Signed By:BOBBY IBARRA MD
[2022-12-21 00:41] VITALS: BP 126/69; PULSE 81
[2022-12-21 00:48] VITALS: BP 128/83; BP 135/70; PULSE 78; PULSE 89
--- NOTE | 2022-12-21 01:28 | PC.NURSE ---
Pt A&Ox4, denies any pain, reports tight/heavy feeling to chest, started at 1145 pm last night while watching TV. Stated started feeling hot and tingly feeling all over . Placed on bedside monitor, EKG obtained.
[2022-12-21 02:24] VITALS: BP 132/80; PULSE 92; RESP 18; O2SAT 96
== END 2022-12-21 02:32 | disposition home or self-care (01) ==
PROVIDERS: Emergency Provider Internal Medicine
DX: R07.89 Other chest pain (principal); R00.2 Palpitations; Z79.899 Other long term (current) drug therapy
CPT/HCPCS: 93005; 99283; 99285

== ENCOUNTER 2023-04-14 11:54 | Outpatient (REF) | payer BC, SELFPAY ==
[2023-04-15 11:55] LABS: CT PCR NOT DETECTED (Not Detect.); NG PCR NOT DETECTED (Not Detect.)
== END 2023-04-14 11:55 | disposition home or self-care (01) ==
LOC: HO.LNP 11:54
PROVIDERS: Visit Provider Obstetrics & Gynecology
DX: Z01.419 Encounter for gynecological examination (general) (routine) without abnormal findings (principal); Z20.2 Contact with and (suspected) exposure to infections with a predominantly sexual mode of transmission; N39.0 Urinary tract infection, site not specified
CPT/HCPCS: 0353U; 81003; 87086; 88142